=== PATIENT | male | born 1965 | race Caucasian/White ===

== ENCOUNTER 2021-01-20 16:05 | Emergency (ER) | payer BC ==
[~2021-01-20] VITALS: Ht 167.6 cm; Wt 74.8 kg
[2021-01-20] MEDS ORDERED: APAP W/CODEINE1 TA2 PO (16:35)
[2021-01-20] MEDS ORDERED: CEPHALEXIN500 MG PO (16:35)
[2021-01-20 17:41] VITALS: BP 158/86
== END 2021-01-20 17:42 | disposition home or self-care (01) ==
LOC: M.ERS 16:05 → EDBD 16:05 → M.ERS 17:42
DX: S61.012A Laceration without foreign body of left thumb without damage to nail, initial encounter (principal); W22.8XXA Striking against or struck by other objects, initial encounter; Y93.89 Activity, other specified; Y92.89 Other specified places as the place of occurrence of the external cause; Y99.8 Other external cause status